=== PATIENT | female | born 1985 | race Caucasian/White ===

== ENCOUNTER 2016-12-30 11:09 | Emergency (ER) | payer BC, OTHER ==
[~2016-12-30] VITALS: Ht 167.6 cm; Wt 86.2 kg
--- NOTE | 2016-12-30 12:45 | Emergency Room Report ---
History of Present Illness General Chief Complaint: Vomiting Source: Patient (ADAN KRAMER) Present Illness HPI The patient is a 31-year-old female who denies any medical history presenting for nausea and vomiting which began last night after consuming alcohol. The patient states that she had two cocktails and then developed the symptoms. Patient states she has had 5 episodes of vomiting since this morning. Patient describes pain as a 5/10 dull ache to the mid upper abdomen and does not radiate. Pain is worse with retching. Pt denies: CP, SOB, F, hematuria, constipation, diarrhea, muscle pain, joint pain, rash, MIJARES (ADAN KRAMER.Dmitri) Allergies: Coded Allergies: No Known Allergies (Unverified , 12/30/16) Patient History Past Medical History: see triage record Pertinent Family History: none Last Menstrual Period: 12/12/16 Now: No Reviewed Nursing Documentation: PMH: Agreed, PSxH: Agreed (ADAN KRAMER) Nursing Documentation-PMH Past Medical History: No Stated History (ADAN KRAMER) Review of Systems All Other Systems: negative except mentioned in HPI (ADAN KRAMER.Dmitri) Physical Exam Vital Signs Date Time Temp Pulse Resp B/P Pulse Ox O2 Delivery O2 Flow Rate FiO2 12/30/16 11:22 98.2 95 18 92/61 97 Room Air Sp02 EP Interpretation: reviewed, normal General Appearance: no apparent distress, alert, GCS 15, non-toxic Head: normocephalic, atraumatic Eyes: bilateral eye PERRL, bilateral eye normal inspection ENT: hearing grossly normal, normal pharynx, no angioedema, normal voice Respiratory: chest non-tender, lungs clear, normal breath sounds, no wheezing, speaking full sentences Cardiovascular #1: regular rate, rhythm, no edema Gastrointestinal: normal bowel sounds, non tender, soft, non-distended, no guarding, no rebound Genitourinary: normal inspection, no CVA tenderness Musculoskeletal: back normal, gait/station normal, normal range of motion, non- tender Neurologic: alert, oriented x3, responsive, motor strength/tone normal, sensory intact, speech normal Psychiatric: judgement/insight normal, memory normal, mood/affect normal, no suicidal/homicidal ideation Skin: normal color, no rash, warm/dry, well hydrated Lymphatic: no adenopathy (ADAN KRAMER) Medical Decision Making PA Attestation Dr. Smith is my supervising physician. Patient management was discussed with my supervising physician (ADAN KARMER) Diagnostic Impression: Primary Impression: Nausea with vomiting ER Course The patient is a 31-year-old female presenting for nausea and vomiting Differential diagnoses considered but not limited to: Dehydration, gastroenteritis, pancreatitis, appendicitis PE: Vitals WNL. NAD. Abdomen: Normal appearance. Non distended. No ecchymosis. Normal BS. Non TTP. No McBurney point tenderness. No guarding. No CVA tenderness Labs: CBC unremarkable. No leukocytosis CMP: unremarkable Elevated lipase. UA unremarkable. Neg preg The patient is given IV fluids and Zofran and is feeling better. Patient has not vomited. The patient will be discharged home with a prescription for Zofran and is advised to refrain from using alcohol. ER precautions given Laboratory Tests Test 12/30/16 12:25 12/30/16 14:23 White Blood Count 5.8 K/UL (4.8-10.8) Red Blood Count 5.01 M/UL (4.20-5.40) Hemoglobin 14.4 G/DL (12.0-16.0) Hematocrit 44.5 % (37.0-47.0) Mean Corpuscular Volume 89 FL (80-99) Mean Corpuscular Hemoglobin 28.8 PG (27.0-31.0) Mean Corpuscular Hemoglobin Concent 32.3 G/DL (32.0-36.0) Red Cell Distribution Width 12.3 % (11.6-14.8) Platelet Count 309 K/UL (150-450) Mean Platelet Volume 6.2 FL (6.5-10.1) L Neutrophils (%) (Auto) 73.7 % (45.0-75.0) Lymphocytes (%) (Auto) 20.6 % (20.0-45.0) Monocytes (%) (Auto) 3.8 % (1.0-10.0) Eosinophils (%) (Auto) 0.9 % (0.0-3.0) Basophils (%) (Auto) 1.0 % (0.0-2.0) Sodium Level 141 mEQ/L (135-145) Potassium Level 4.4 mEQ/L (3.4-4.9) Chloride Level 99 mEQ/L (98-107) Carbon Dioxide Level 23 mEQ/L (20-30) Anion Gap 19 (5-15) H Blood Urea Nitrogen 17 mg/dL (7-23) Creatinine 0.7 mg/dL (0.5-0.9) Estimate Glomerular Filtration Rate > 60 mL/min (>60) Glucose Level 99 mg/dL (74-106) Calcium Level 9.2 mg/dL (8.6-10.2) Total Bilirubin 0.4 mg/dL (0.0-1.2) Aspartate Amino Transferase (AST) 22 U/L (5-40) Alanine Aminotransferase (ALT) 20 U/L (3-33) Alkaline Phosphatase 69 U/L (35-104) Total Protein 7.8 g/dL (6.6-8.7) Albumin 4.4 g/dL (3.5-5.2) Globulin 3.4 g/dL Albumin/Globulin Ratio 1.2 (1.0-2.7) Lipase 94 U/L (< 60) H Urine Color Pale yellow Urine Appearance Clear Urine pH 7 (4.5-8.0) Urine Specific [place] 1.015 (1.005-1.035) Urine Protein Negative (NEGATIVE) Urine Glucose (UA) Negative (NEGATIVE) Urine Ketones Negative (NEGATIVE) Urine Occult Blood Negative (NEGATIVE) Urine Nitrite Negative (NEGATIVE) Urine Bilirubin Negative (NEGATIVE) Urine Urobilinogen Normal MG/DL (0.0-1.0) Urine Leukocyte Esterase Negative (NEGATIVE) Urine HCG, Qualitative Negative Lab Results Impression CBC unremarkable. No leukocytosis CMP: unremarkable Elevated lipase. UA unremarkable. Neg preg (TERZIAN,ADAN P.A.) ER Course Mildly elevated lipase but I doubt pancreatitis given well apperance, stable vital signs and serial benign abdominal exam after medication. DC home - understands to return for worsenin abd pain, intractable vomiting Otherwise PMD followup (WAI SMITH M.D.) Last Vital Signs Date Time Temp Pulse Resp B/P Pulse Ox O2 Delivery O2 Flow Rate FiO2 12/30/16 11:22 98.2 95 18 92/61 97 Room Air Status: improved (TERZIAN,ADAN P.A.) Status: improved (WAI SMITH M.D.) Disposition: HOME, SELF-CARE Condition: Improved Scripts Ondansetron* (ZOFRAN*) 4 Mg Tablet 4 MG ORAL Q6H Y for Nausea & Vomiting, #15 TAB Prov: ADAN KRAMER 12/30/16 Referrals: [facility],REFERRING (PCP) ADAN KRAMER Dec 30, 2016 12:45 WAI SMITH M.D. Jan 04, 2017 13:51
[2016-12-30 13:05] LABS: ALANINE AMINOTRANSFERASE 20 U/L (3-33); ALBUMIN/GLOBULIN RATIO 1.2 (1.0-2.7); ANION GAP 19 (5-15); ASPARTATE AMINO TRANSFERASE 22 U/L (5-40); CALCIUM 9.2 mg/dL (8.6-10.2); CARBON DIOXIDE 23 mEQ/L (20-30); CHLORIDE 99 mEQ/L (98-107); CREATININE 0.7 mg/dL (0.5-0.9); GLOMERULAR FILTRATION RATE > 60 mL/min (>60); HEMOLYSIS 2; LIPASE 94 U/L (< 60); POTASSIUM 4.4 mEQ/L (3.4-4.9); SODIUM 141 mEQ/L (135-145); TOTAL PROTEIN 7.8 g/dL (6.6-8.7)
[2016-12-30 13:25] LABS: EOSINOPHILS % (AUTO) 0.9 % (0.0-3.0); LYMPHOCYTES % (AUTO) 20.6 % (20.0-45.0); MEAN CORPUSCULAR HEMOGLOBIN 28.8 PG (27.0-31.0); MEAN CORPUSCULAR HGB CONC 32.3 G/DL (32.0-36.0); MEAN CORPUSCULAR VOLUME 89 FL (80-99); MEAN PLATELET VOLUME 6.2 FL (6.5-10.1); MONOCYTES % (AUTO) 3.8 % (1.0-10.0); NEUTROPHILS % (AUTO) 73.7 % (45.0-75.0); PLATELET COUNT 309 K/UL (150-450); RED BLOOD COUNT 5.01 M/UL (4.20-5.40); RED CELL DISTRIBUTION WIDTH 12.3 % (11.6-14.8); WHITE BLOOD COUNT 5.8 K/UL (4.8-10.8)
[2016-12-30] MEDS ORDERED: ZOFRAN4 M3 ORAL (14:26)
[2016-12-30 14:30] VITALS: BP 101/65
[2016-12-30 14:36] LABS: APPEARANCE,URINE CLEAR; KETONES,URINE NEGATIVE (NEGATIVE); LEUKOCYTE ESTERASE ,URINE NEGATIVE (NEGATIVE); NITRITE,URINE NEGATIVE (NEGATIVE); PH,URINE 7 (4.5-8.0); PROTEIN,URINE NEGATIVE (NEGATIVE); UROBILINOGEN,URINE NORMAL MG/DL (0.0-1.0)
[2016-12-30 14:57] VITALS: BP 101/65
== END 2016-12-30 14:57 | disposition home or self-care (01) ==
LOC: EDBD 11:09 → EMR 12:36
DX: R11.2 Nausea with vomiting, unspecified (principal)
CPT/HCPCS: 36415; 80053; 81003; 81025; 83690; 85025; 96374; 96375; 99284; J2405